=== PATIENT | male | born 1965 | race Caucasian/White ===

== ENCOUNTER 2016-07-05 18:11 | Emergency (ER) | payer SELFPAY ==
[~2016-07-05] VITALS: Ht 188 cm; Wt 90.0 kg
[~2016-07-05 18:11] MED LIST: DEPA250T2 PO
[2016-07-05 18:12] VITALS: BP 155/90; PULSE 92; RESP 20; TEMP 98.4; O2SAT 99
--- NOTE | 2016-07-05 18:50 | PD ---
HPI Chief Complaint: Cold / Flu Symptoms Time Seen by Provider: 18:50 Travel History International Travel<30 days: No Contact w/Intl Traveler<30days: No Traveled to known affect area: No History of Present Illness HPI 51-year-old male presents to the emergency department complaint of cough, nasal congestion, body aches, headache 9 days. Reports subjective fever since last Sunday but cannot report MAXIMUM TEMPERATURE secondary to not taking his temperature. He reports feeling hot and body chills. Reports chest tightness and shortness of breath. Denies hemoptysis. Denies chest pain. Reports throat irritation mainly when coughing. Denies ear pain. Reports tobacco use daily. Denies history of COPD or asthma. Reports wheezing. Reports vomiting times one today secondary to cough exacerbation. Otherwise denies nausea, vomiting, abdominal pain. Has tried multiple ydpz-mbk-[id number] medications with minimal symptom relief. No known relieving or aggravating factors. No known allergies. History of hypertension and does not take medications. Does not have an established primary care provider. No other modifying factors or associated signs and symptoms. PFSH Past Medical History ADD: No ADHD: Yes Bipolar Disorder: Yes (MANIC DEPRESSIVE) Anxiety: Yes Diminished Hearing: Yes (LEFT EAR HEARING LOSS) Social History Alcohol Use: Yes Tobacco Use: Yes Substance Use: Yes (CRACK, WEED) Allergies-Medications (Allergen,Severity, Reaction): Coded Allergies: No Known Allergies (Unverified , 07/05/16) Reported Meds & Prescriptions Reported Meds & Active Scripts Active Ibuprofen 800 Mg Tab 800 Mg PO Q6HR PRN Nasonex Nasal [place] (Mometasone Furoate) 50 Mcg/Act Naspr 2 [place] EACH NARE DAILY PRN Tessalon Perles (Benzonatate) 100 Mg Cap 100 Mg PO TID PRN Deltasone (Prednisone) 20 Mg Tab 40 Mg PO DAILY 4 Days start 07/06/2016 Proair Hfa 8.5 GM Inh (Albuterol Sulfate) 90 Mcg/Act Aer 2 Puff INH Q4-6H PRN 108 mcg/actuation Azithromycin 500 Mg Tab 500 Mg PO DAILY Review of Systems Except as stated in HPI: all other systems reviewed are Neg Physical Exam Narrative GENERAL: Well-nourished, well-developed male patient, in no acute distress; afebrile, appears psychiatric doesn't feel well SKIN: Warm and moist. HEAD: Atraumatic. Normocephalic. EYES: Pupils equal and round at 3 mm with brisk reaction. No scleral icterus. No injection or drainage. PERRLA. EOMI. ENT: Mucosa pink and moist. No erythema or exudates. No uvular edema. No uvular , palatal, or tonsillar deviation. Airway patent. EARS: Bilateral pinnae and external canals appear within normal limits. Bilateral tympanic membranes without erythema, dullness or perforation. NECK: Trachea midline. No lymphadenopathy. CARDIOVASCULAR: Regular rate and rhythm. No murmur appreciated. RESPIRATORY: No accessory muscle use. Clear to auscultation and slightly decreased in bilateral bases. Breath sounds equal bilaterally. Continuous moist , nonproductive cough during physical exam. GASTROINTESTINAL: Abdomen soft, non-tender, nondistended. Hepatic and splenic margins not palpable. Bowel sounds are active 4 quadrants. MUSCULOSKELETAL: No obvious deformities. No clubbing. No cyanosis. No edema. NEUROLOGICAL: Awake and alert. Oriented 3. No obvious cranial nerve deficits. Motor grossly within normal limits. Normal speech. Moves all extremities. 5/5 strength to all extremities. PSYCHIATRIC: Appropriate mood and affect; insight and judgment normal. Data Data Last Documented VS Vital Signs Date Time Temp Pulse Resp B/P Pulse Ox O2 Delivery O2 Flow Rate FiO2 07/05/16 18:12 98.4 92 20 155/90 99 Room Air Orders Influenzae A/B Antigen (07/05/16 18:41) Ibuprofen (Motrin) (07/05/16 19:00) Chest, Single Ap (07/05/16 18:50) Prednisone (Deltasone) (07/05/16 19:00) Albuterol Neb (Albuterol Neb) (07/05/16 19:00) Azithromycin (Zithromax) (07/05/16 19:30) MDM Medical Decision Making Medical Screen Exam Complete: Yes Emergency Medical Condition: Yes Medical Record Reviewed: Yes Differential Diagnosis Influenza, bronchitis, pneumonia, upper respiratory infection Narrative Course 51-year-old male with cold/flu symptoms. Onset of subjective fever last Sunday. Afebrile nontoxic appearing in the ER. Persistent moist cough during physical exam. Lungs are clear with decreased lung sounds in bilateral bases. No wheezing. Oxygen saturation is 99% on room air. Influenza ordered. Chest x-ray, albuterol nebulizer, Deltasone ordered. Ibuprofen ordered. 1900: Eduardo Danielle, PAC assumed patient care at this time. Report given. See his note for final disposition. Referrals: Primary Care Physician Patient Instructions: Acute Bronchitis (ED), General Instructions Departure Forms: Tests/Procedures, Work Release Enter return to work date: Jul 07, 2016 Additional Instructions: Use Albuterol inhaler as prescribed Take oral steroids as prescribed and complete full course Use Tessalon Perles as prescribed to decrease coughing spasms Vlvl-noz-bcwawox decongestants or antihistamines as directed and as needed for symptom management Your cough can last 4-6 weeks Drink plenty of fluids to prevent dehydration Use hot air humidifier to decrease cough exacerbation Turn off ceiling fans and sleep with head of bed elevated Avoid triggers such as second hand smoke, dust, known allergens Follow-up with your primary care provider Return to the emergency department immediately with worsening of symptoms Med/Other Pt SpecificInfo: Prescription(s) given Scripts Ibuprofen 800 Mg Lib893 Mg PO Q6HR PRN (PAIN) #30 TAB Ref 0 Prov:Yessica Mera 07/05/16 Mometasone Nasal [place] (Nasonex Nasal [place])50 Mcg/Act Naspr2 [place] EACH NARE DAILY PRN (NASAL CONGESTION) #1 BOTTLE Ref 0 Prov:Yessica Mera 07/05/16 Benzonatate (Tessalon Perles)100 Mg [id number] Mg PO TID PRN (COUGH) #20 CAP Ref 0 Prov:Yessica MeraP 07/05/16 Prednisone (Deltasone)20 Mg Tab40 Mg PO DAILY 4 Days Ref 0 start 07/06/2016 Prov:Yessica Mera 07/05/16 Albuterol 8.5 GM Inh (Proair Hfa 8.5 GM Inh)90 Mcg/Act Aer2 Puff INH Q4-6H PRN ( SOB/WHEEZING) #1 INHALER Ref 0 108 mcg/actuation Prov:Yessica Mera 07/05/16 Azithromycin 500 Mg Pab136 Mg PO DAILY #5 TAB Ref 0 Prov:Yessica MeraP 07/05/16 Disposition: 01 DISCHARGE HOME Condition: Stable Yessica Mera Jul 05, 2016 18:50
[2016-07-05] MEDS ORDERED: MOME17I EACH NARE (18:59)
[2016-07-05] MEDS ORDERED: BENZ100 PO (18:59)
[2016-07-05] MEDS ORDERED: AZIT500T2 PO (18:59)
[2016-07-05] MEDS ORDERED: ALBUAER3 INH (18:59)
[2016-07-05] MEDS ORDERED: PRED-503 PO (18:59)
[2016-07-05] MEDS ORDERED: IBUP800T23 PO (18:59)
[2016-07-05] MEDS ORDERED: IBUPROFEN 800 MG TAB PO ONE (19:00)
[2016-07-05] MEDS ORDERED: predniSONE 20 MG TAB PO ONE (19:00)
[2016-07-05] MEDS ORDERED: RESP: ALBUTEROL 2.5 MG/3 ML NEB (SCH) INH ONE (19:00)
[2016-07-05] MEDS ORDERED: AZITHROMYCIN 250 MG TAB PO ONE (19:30)
--- NOTE | 2016-07-05 19:30 | PD ---
Physical Exam Date Seen by Provider: Jul 05, 2016 Time Seen by Provider: 19:27 Data Data Last Documented VS Vital Signs Date Time Temp Pulse Resp B/P Pulse Ox O2 Delivery O2 Flow Rate FiO2 07/05/16 18:12 98.4 92 20 155/90 99 Room Air Orders Influenzae A/B Antigen (07/05/16 18:41) Ibuprofen (Motrin) (07/05/16 19:00) Chest, Single Ap (07/05/16 18:50) Prednisone (Deltasone) (07/05/16 19:00) Albuterol Neb (Albuterol Neb) (07/05/16 19:00) Azithromycin (Zithromax) (07/05/16 19:30) MDM Medical Record Reviewed: Yes Supervised Visit with WALLY: No Interpretation(s) Influenza: Negative Chest x-ray: Patient has some streaky congestion in the left lower lobe which may be consistent with an early developing pneumonia Differential Diagnosis MDM: High Differential diagnoses: Pneumonia, bronchitis, URI, asthma, RAD, legionnaire's disease, SARS, ARDS, influenza, bronchiolitis, RSV,PE,CHF Narrative Course The patient is given Zithromax 500 mg by mouth. Patient be treated for early pneumonia, reactive airway disease Diagnosis Primary Impression: Pneumonia Qualified Code: J18.1 - Pneumonia of left lower lobe due to infectious organism Additional Impression: Reactive airway disease Qualified Code: J45.20 - Reactive airway disease, mild intermittent, uncomplicated Referrals: Primary Care Physician Patient Instructions: General Instructions, Acute Bronchitis (ED) Departure Forms: Work Release, Enter return to work date: Tests/Procedures Additional Instruction: Use Albuterol inhaler as prescribed Take oral steroids as prescribed and complete full course Use Tessalon Perles as prescribed to decrease coughing spasms Tzvr-pwm-ythpvve decongestants or antihistamines as directed and as needed for symptom management Your cough can last 4-6 weeks Drink plenty of fluids to prevent dehydration Use hot air humidifier to decrease cough exacerbation Turn off ceiling fans and sleep with head of bed elevated Avoid triggers such as second hand smoke, dust, known allergens Follow-up with your primary care provider Return to the emergency department immediately with worsening of symptoms Med/Other Pt SpecificInfo: Prescription(s) given Scripts Ibuprofen 800 Mg [id number] Mg PO Q6HR PRN (PAIN) #30 TAB Ref 0 Prov:Yessica Mera [employer]PERVISOR [employer]INTENA[employer]CE 07/05/16 Mometasone Nasal [place] (Nasonex Nasal [place])50 Mcg/Act Naspr2 [place] EACH NARE DAILY PRN (NASAL CONGESTION) #1 BOTTLE Ref 0 Prov:Yessica Mera SUPERVIS[employer] MAINTENANCE 07/05/16 Benzonatate (Tessalon Perles)100 Mg Hot049 Mg PO TID PRN (COUGH) #20 CAP Ref 0 Prov:Yesscia Mera Chelita SUPERVISOR [employer] MAINTENANCE 07/05/16 Prednisone (Deltasone)20 Mg Tab40 Mg PO DAILY 4 Days Ref 0 start 07/06/2016 Prov:Yessica Mera SUPERVIS[employer] MAINTENANCE 07/05/16 Albuterol 8.5 GM Inh (Proair Hfa 8.5 GM Inh)90 Mcg/Act Aer2 Puff INH Q4-6H PRN ( SOB/WHEEZING) #1 INHALER Ref 0 108 mcg/actuation Prov:Yessica Mera Chelita SUPERVISOR [employer]LL MAINTENANCE 07/05/16 Azithromycin 500 Mg Qiy210 Mg PO DAILY #5 TAB Ref 0 Prov:Yessica Mera Chelita WADEP 07/05/16 Disposition: 01 DISCHARGE HOME Condition: Stable Eduardo Danielle Jul 05, 2016 19:30
--- NOTE | 2016-07-05 19:42 | RADRPT ---
EXAM DATE/TIME: 07/05/2016 19:01 [facility] COMPARISON: No previous studies available for comparison. INDICATIONS : Cough and cold symptoms for 1 week. MEDICAL HISTORY : Hypertension. SURGICAL HISTORY : None. ENCOUNTER: Subsequent ACUITY: 1 day PAIN SCORE: 3/10 LOCATION: Bilateral chest FINDINGS: The heart and mediastinal structures are normal. The pulmonary vascular pattern is normal. The lung s are clear. CONCLUSION: 1. No acute cardiopulmonary disease. Shamar Fink MD on July 05, 2016 at 19:38 Board Certified Radiologist. This report was verified electronically.
== END 2016-07-05 19:41 | disposition home or self-care (01) ==
LOC: NEPB 18:11
DX: J18.1 Lobar pneumonia, unspecified organism (principal); J45.20 Mild intermittent asthma, uncomplicated; M79.1 Myalgia; R51 Headache; I10 Essential (primary) hypertension; H91.92 Unspecified hearing loss, left ear; Z72.0 Tobacco use; Z86.59 Personal history of other mental and behavioral disorders
CPT/HCPCS: 71010; 87804; 94664; 99284; J7512; J7613

== ENCOUNTER 2016-07-12 00:43 | Emergency (ER) | payer SELFPAY ==
[~2016-07-12] VITALS: Ht 188 cm; Wt 93.1 kg
[~2016-07-12 00:43] MED LIST changes: +ALBUAER3 INH; +AZIT500T2 PO; +BENZ100 PO; -DEPA250T2 PO; +IBUP800T23 PO; +MOME17I EACH NARE; +PRED-503 PO
[2016-07-12 00:45] VITALS: BP 136/92; PULSE 72; RESP 16; TEMP 98; O2SAT 98
[2016-07-12 01:07] VITALS: BP 153/84; PULSE 75; RESP 16; O2SAT 97
[2016-07-12 01:14] VITALS: RESP 16
[2016-07-12 01:27] LABS: AUTOMATED NEUTROPHIL # 4.9 TH/MM3 (1.8-7.7); BASOPHIL # 0.1 TH/MM3 (0-0.2); BASOPHIL % 0.7 % (0.0-2.0); EOSINOPHIL # 0.3 TH/MM3 (0-0.4); EOSINOPHIL % 2.6 % (0.0-4.0); HEMATOCRIT 43.6 % (39.0-51.0); LYMPH % 48.6 % (9.0-44.0); LYMPHOCYTE # 5.3 TH/MM3 (1.0-4.8); MEAN CORPUSCULAR HEMOGLOBIN 33.1 PG (27.0-34.0); MEAN CORPUSCULAR HGB CONC 35.2 % (32.0-36.0); NEUT % 45.1 % (16.0-70.0); PLATELET COUNT 159 TH/MM3 (150-450); RED BLOOD COUNT 4.64 MIL/MM3 (4.50-5.90); RED CELL DISTRIBUTION WIDTH 12.7 % (11.6-17.2); WHITE BLOOD COUNT 10.9 TH/MM3 (4.0-11.0)
[2016-07-12 01:31] LABS: HEMO FLAGS AUTO DIFF
[2016-07-12 01:33] LABS: BLOOD, URINE MOD (NEG); GLUCOSE,URINE NEG (NEG); KETONE, URINE NEG (NEG); MUCUS URINE FEW /lpf (OCC); NITRITE,URINE NEG (NEG); RENAL EPITHELIAL CELLS <1 /hpf; URINE COLOR YELLOW (YELLW/STRAW)
[2016-07-12 01:38] LABS: COMMENT (UR) CULT NOT INDICATED; CULTURE IF INDICATED CULT NOT INDICATED
[2016-07-12 01:55] LABS: ALT (GPT) 27 U/L (12-78); ANION GAP 5 MEQ/L (5-15); AST (GOT) 15 U/L (15-37); BICARBONATE 26.7 MEQ/L (21.0-32.0); BLOOD UREA NITROGEN 14 MG/DL (7-18); CHLORIDE 110 MEQ/L (98-107); GLOMERULAR FILTRATION RATE 62 ML/MIN (>89); POTASSIUM 4.7 MEQ/L (3.5-5.1); SODIUM (NA) 142 MEQ/L (136-145)
[2016-07-12 01:57] LABS: ALKALINE PHOSPHATASE 73 U/L (45-117); TOTAL BILIRUBIN ADULT 0.5 MG/DL (0.2-1.0)
[2016-07-12] MEDS ORDERED: SODIUM CHLOR 0.9% 1000 ML INJ 1,000 ML IV ONE (02:00)
[2016-07-12] MEDS ORDERED: ONDANSETRON HCL 4 MG/2 ML VIAL IV ONE (02:00)
[2016-07-12] MEDS ORDERED: KETOROLAC TROMETHAMINE 30 MG/ML (IVP) VIAL IV PUSH ONE (02:00)
[2016-07-12 02:11] LABS: BANDS 3 % (0-6); EOSINOPHILS 1 % (0-4); NEUTROPHIL # MANUAL DIFF 5.8 TH/MM3 (1.8-7.7); POLYS (SEG NEUTROPHILS) 50 % (16-70); WBC DIFF SAMPLE 100
[2016-07-12 02:12] LABS: PLATELET ESTIMATE SMEAR NORMAL (NORMAL); PLATELET MORPHOLOGY NORMAL (NORMAL); SCAN/DIFF FINAL DIFF MANUAL
[2016-07-12] MEDS ORDERED: AZITHROMYCIN PWD FOR SUSP 1 GM PACKET PO ONE (02:30)
[2016-07-12] MEDS ORDERED: cefTRIAXone INJ 1,000 MG in SODIUM CHLORIDE 0.9% INJ 100 ML IV ONE (02:30)
--- NOTE | 2016-07-12 04:17 | PD ---
HPI Chief Complaint: Flank/Kidney Pain Time Seen by Provider: 01:47 Travel History International Travel<30 days: No Contact w/Intl Traveler<30days: No Traveled to known affect area: No History of Present Illness HPI The patient is a 51 year old male who presents to the [facility] emergency department with a history of sudden onset of right flank pain that began at approximately 11 PM this evening. The patient reports that the pain has been coming and going and feels like someone is touching his back. He denies any injury associated with this. He denies having any urinary symptoms such as dysuria, hematuria, urinary urgency or frequency. He does however report that he did have unprotected intercourse recently and was told that the female that he had sex with has a sexually transmitted disease. He is unsure of the name of the disease. He denies having any penile discharge. He denies having any prior history of kidney stone. The patient denies any recent fevers, worsening cough or congestion (the patient was recently treated for a chest cold with antibiotic that he completed last week), neck pain, chest pain, shortness of breath, abdominal pain, vomiting, diarrhea, urinary symptoms, or neurologic symptoms. [facility] Past Medical History Narrative Medical The patient's past medical history is significant for bipolar disorder, tension deficit hyperactivity disorder, ADD: No ADHD: Yes Bipolar Disorder: Yes (MANIC DEPRESSIVE) Anxiety: Yes Diminished Hearing: Yes (LEFT EAR HEARING LOSS) Immunizations Current: Yes Tetanus Vaccination: > 5 Years Influenza Vaccination: Yes Past Surgical History Narrative Surgical The patient's past surgical history is significant for left ankle ORIF. Social History Alcohol Use: Yes (socially) Tobacco Use: Yes Substance Use: Yes (CRACK, WEED) Allergies-Medications (Allergen,Severity, Reaction): Coded Allergies: No Known Allergies (Unverified , 07/12/16) Reported Meds & Prescriptions Reported Meds & Active Scripts Active Review of Systems Except as stated in HPI: all other systems reviewed are Neg General / Constitutional: No: Fever Eyes: No: Visual changes HENT: No: Headaches Cardiovascular: No: Chest Pain or Discomfort Respiratory: No: Shortness of Breath Gastrointestinal: No: Nausea, Vomiting, Diarrhea, Abdominal Pain, Changes in Bowel Habits, Indigestion Genitourinary: Positive: Flank Pain (right flank pain), No: Dysuria Musculoskeletal: No: Pain Skin: No Rash Neurologic: No: Weakness Psychiatric: No: Depression Endocrine: No: Polydipsia Hematologic/Lymphatic: No: Easy Bruising Physical Exam Narrative General: The patient is a well-developed well-nourished male in no acute distress. Head and Neck exam: Head is normocephalic atraumatic. Eyes: EOMI, pupils are equal round and reactive to light. Nose: Midline septum with pink mucous membranes Mouth: Dentition unremarkable. Moist mucus membranes. Posterior oropharynx is not erythematous. No tonsillar hypertrophy. Uvula midline. Airway patent. Neck: No palpable lymphadenopathy. No nuchal rigidity. No thyromegaly. Cardiovascular: Regular rate and rhythm without murmurs, gallops, or rubs. Lungs: Clear to auscultation bilaterally. No wheezes, rhonchi, or rales. Abdomen: Soft, without tenderness to palpation in all 4 quadrants of the abdomen. No guarding, rebound, or rigidity. Normal bowel sounds are audible. No tenderness on palpation of McBurney's point. Negative Ceballos's sign. Extremities: No clubbing, cyanosis, or edema. 2+ pulses in all 4 extremities. Back: No spinous process tenderness to palpation. Right-sided CVA tenderness on palpation. Neurologic Exam: Grossly nonfocal. Skin Exam: No rash noted. Intact skin that is warm and dry. Data Data Last Documented VS Vital Signs Date Time Temp Pulse Resp B/P Pulse Ox O2 Delivery O2 Flow Rate FiO2 07/12/16 01:14 16 07/12/16 01:07 75 153/84 97 Room Air 07/12/16 00:45 98.0 Orders Complete Blood Count With Diff (07/12/16 01:11) Comprehensive Metabolic Panel (07/12/16 01:11) Lipase (07/12/16 01:11) Urinalysis - C+S If Indicated (07/12/16 01:11) Iv Access Insert/Monitor (07/12/16 01:11) Ecg Monitoring (07/12/16 01:11) Oximetry (07/12/16 01:11) NPO (07/12/16 01:11) Sodium Chlor 0.9% 1000 Ml Inj (Ns 1000 M (07/12/16 02:00) Ondansetron Inj (Zofran Inj) (07/12/16 02:00) Ketorolac Inj (Toradol Inj) (07/12/16 02:00) Ct Abd/Pel W/O Iv Contrast (07/12/16 01:47) Gc And Chlamydia Pcr (07/12/16 02:18) Ceftriaxone Inj (Rocephin Inj) (07/12/16 02:30) Azithromycin Powd Pack (Zithromax Powd P (07/12/16 02:30) Labs Laboratory Tests Test 07/12/16 01:15 White Blood Count 10.9 TH/MM3 Red Blood Count 4.64 MIL/MM3 Hemoglobin 15.4 GM/DL Hematocrit 43.6 % Mean Corpuscular Volume 94.0 FL Mean Corpuscular Hemoglobin 33.1 PG Mean Corpuscular Hemoglobin 35.2 % Concent Red Cell Distribution Width 12.7 % Platelet Count 159 TH/MM3 Mean Platelet Volume 7.9 FL Neutrophils (%) (Auto) 45.1 % Lymphocytes (%) (Auto) 48.6 % Monocytes (%) (Auto) 3.0 % Eosinophils (%) (Auto) 2.6 % Basophils (%) (Auto) 0.7 % Neutrophils # (Auto) 4.9 TH/MM3 Lymphocytes # (Auto) 5.3 TH/MM3 Monocytes # (Auto) 0.3 TH/MM3 Eosinophils # (Auto) 0.3 TH/MM3 Basophils # (Auto) 0.1 TH/MM3 CBC Comment AUTO DIFF Differential Total Cells 100 Counted Neutrophils % (Manual) 50 % Band Neutrophils % 3 % Lymphocytes % 42 % Monocytes % 4 % Eosinophils % 1 % Neutrophils # (Manual) 5.8 TH/MM3 Differential Comment FINAL DIFF MANUAL Atypical Lymphocytes % Platelet Estimate NORMAL Platelet Morphology Comment NORMAL Red Cell Morphology Comment NORMAL Urine Color YELLOW Urine Turbidity CLEAR Urine pH 5.0 Urine Specific [place] 1.017 Urine Protein NEG mg/dL Urine Glucose (UA) NEG mg/dL Urine Ketones NEG mg/dL Urine Occult Blood MOD Urine Nitrite NEG Urine Bilirubin NEG Urine Urobilinogen LESS THAN 2.0 MG/DL Urine Leukocyte Esterase NEG Urine RBC 28 /hpf Urine WBC 3 /hpf Urine Renal Epithelial Cells <1 /hpf Urine Mucus FEW /lpf Microscopic Urinalysis Comment CULT NOT INDICATED Sodium Level 142 MEQ/L Potassium Level 4.7 MEQ/L Chloride Level 110 MEQ/L Carbon Dioxide Level 26.7 MEQ/L Anion Gap 5 MEQ/L Blood Urea Nitrogen 14 MG/DL Creatinine 1.23 MG/DL Estimat Glomerular Filtration 62 ML/MIN Rate Random Glucose 124 MG/DL Calcium Level 8.3 MG/DL Total Bilirubin 0.5 MG/DL Aspartate Amino Transf 15 U/L (AST/SGOT) Alanine Aminotransferase 27 U/L (ALT/SGPT) Alkaline Phosphatase 73 U/L Total Protein 6.5 GM/DL Albumin 3.2 GM/DL Lipase 208 U/L Chlamydia trachomatis DNA NOT DETECTED (PCR) Neisseria gonorrhoeae DNA NOT DETECTED (PCR) [facility] Medical Decision Making Medical Screen Exam Complete: Yes Emergency Medical Condition: Yes Medical Record Reviewed: Yes Differential Diagnosis Kidney stone, versus pyelonephritis, versus musculoskeletal strain, versus urethritis Narrative Course During the course of the patients emergency department visit, the patients history, examination, and differential diagnosis were reviewed with the patient. The patient had IV access obtained and blood work sent for analysis. The patient was placed on a net application support specialist with oximetry and blood pressure monitoring. The patient was provided normal saline 1 L IV fluid bolus, Zofran 4 mg IV, Toradol 15 mg IV. The patient reports that his pain was controlled. Given his possible exposure to sexually transmitted infection, the patient was given Rocephin 1 g IV, azithromycin 1 g IV. The patients laboratory studies were reviewed and remarkable for a CBC that shows a white count of 10.9, hemoglobin 15.4, platelets 159 with 48.6 lymphocytes, CMP is remarkable for chloride of 110, glucose 124, albumin 3.2, lipase 208, urinalysis shows moderate occult blood 28 rbc's otherwise unremarkable. GC and chlamydia are pending. Radiology studies were reviewed and remarkable for a 5 mm right UPJ stone with mild distention of the renal pelvis, to low density lesions involving the right lobe of the liver poorly characterized on CT given her small size as well as lack of IV contrast. If follow-up outpatient hepatic ultrasound is suggested to further evaluate. Right renal cyst. Splenomegaly noted. The patient was given a copy of his CT scan findings for follow-up with his primary care physician. The patient was given the name of the urologist on-call for follow- up regarding his UPJ stone. The patient is resting comfortably and feels better, is alert and in no distress. The patients results and examination findings were discussed with the patient. The repeat examination is unremarkable and benign. The history, exam, diagnostic testing, and current condition do not suggest any significant pathology to warrant further testing, continued ED treatment, admission, or surgical evaluation at this point. The vital signs have been stable. The patient does not have uncontrollable pain, intractable vomiting, or other significant symptoms. The patient's condition is stable and appropriate for discharge. The patient will pursue further outpatient evaluation with a primary care physician or other designated or consulting physician as indicated in the discharge instructions. The patient expressed understanding and was agreeable with this plan. Diagnosis Primary Impression: Hematuria Additional Impressions: Right flank pain Exposure to STD Right ureteral calculus Referrals: Darwin Hull MD 2 days Primary Care Physician 3 days Patient Instructions: General Instructions, Kidney Stones (ED) Additional Instructions: Follow-up with her primary care physician regarding to low density lesions in the liver. The radiologist recommended an outpatient ultrasound follow-up. Med/Other Pt SpecificInfo: Prescription(s) given Scripts Hydrocodone-Acetaminophen (Lortab)7.5-325 Mg Tab1 Tab PO Q6H PRN (PAIN GREATER THAN/EQUAL TO 5) #12 TAB Ref 0 Prov:July Ulloa MD 07/12/16 Ibuprofen 600 Mg Hua917 Mg PO TID PRN (PAIN SCALE 1 TO 4) #12 TAB Ref 0 Prov:July Ulloa MD 07/12/16 Disposition: 01 DISCHARGE HOME Condition: Stable July Ulloa MD Jul 12, 2016 04:16
[2016-07-12 04:20] LABS: CHLAMYDIA PCR NOT DETECTED (NOT DETECT); NEISSERIA PCR NOT DETECTED (NOT DETECT)
--- NOTE | 2016-07-12 04:24 | RADRPT ---
EXAM DATE/TIME: 07/12/2016 03:04 [facility] COMPARISON: No previous studies available for comparison. INDICATIONS : Right side flank pain ORAL CONTRAST: No oral contrast ingested. RADIATION DOSE: 14.38 CTDIvol (mGy) MEDICAL HISTORY : None SURGICAL HISTORY : None. ENCOUNTER: Initial ACUITY: 1 day PAIN SCALE: 7/10 LOCATION: Right flank TECHNIQUE: Volumetric scanning of the abdomen and pelvis was performed. Using automated exposure control and ad justment of the mA and/or kV according to patient size, radiation dose was kept as low as reasonably achievable to obtain optimal diagnostic quality images. FINDINGS: LOWER LUNGS: The visualized lower lungs are clear. LIVER: 2 low-density lesions are observed. Within segment 8 this measures 7 mm and within segment 6 this atif sures 1.5 cm. There are poorly characterize without IV contrast. The remaining liver is unremarkable. The gallbladder is decompressed the otherwise unremarkable. SPLEEN: Mild splenomegaly. No lesion observed. PANCREAS: Within normal limits. KIDNEYS: Normal in size and shape. A 5 mm stone is seen at the right ureteropelvic junction. Mild prominence o f the renal pelvis without amanda hydronephrosis. A 1.5 cm low-density lesion is seen anteriorly withi n the midpole of the right kidney. ADRENAL GLANDS: Within normal limits. VASCULAR: There is no aortic aneurysm. BOWEL/MESENTERY: The stomach, small bowel, and colon demonstrate no acute abnormality. There is no free intraperitone al air or fluid. Scattered colonic diverticuli without acute inflammation. ABDOMINAL WALL: Within normal limits. RETROPERITONEUM: There is no lymphadenopathy. BLADDER: No wall thickening or mass. REPRODUCTIVE: Within normal limits. INGUINAL: There is no lymphadenopathy or hernia. MUSCULOSKELETAL: Within normal limits for patient age. CONCLUSION: 1. 5 mm right UPJ stone with mild distention of the renal pelvis. 2. 2 low-density lesions involving the right lobe of the liver as detailed above. These are poorly ch aracterized with CT given their small size as well as the lack of IV contrast. A followup outpatient hepatic ultrasound is suggested to further evaluate. 3. Right renal cyst. 4. Splenomegaly. Fco Urrutia Jr., MD on July 12, 2016 at 4:17 Board Certified Radiologist. This report was verified electronically.
[2016-07-12] MEDS ORDERED: IBUP-232 PO (04:33)
[2016-07-12] MEDS ORDERED: HYDR-3534 PO (04:33)
== END 2016-07-12 04:39 | disposition home or self-care (01) ==
LOC: NEPE 00:43
DX: N20.1 Calculus of ureter (principal); N28.1 Cyst of kidney, acquired; Z20.2 Contact with and (suspected) exposure to infections with a predominantly sexual mode of transmission
CPT/HCPCS: 74176; 80053; 81001; 83690; 85007; 85027; 87491; 87591; 96361; 96365; 96375; 99284; J0696; J1885; J2405; J7030

== ENCOUNTER 2016-07-16 03:05 | Emergency (ER) | payer SELFPAY ==
[~2016-07-16] VITALS: Ht 188 cm; Wt 95.0 kg
[~2016-07-16 03:05] MED LIST changes: -ALBUAER3 INH; -AZIT500T2 PO; -BENZ100 PO; +HYDR-3534 PO; +IBUP-232 PO; -IBUP800T23 PO; -MOME17I EACH NARE; -PRED-503 PO
[2016-07-16 03:08] VITALS: PULSE 83; RESP 22; TEMP 98.6; O2SAT 99
[2016-07-16] MEDS: SODIUM CHLOR 0.9% 1000 ML INJ 1,000 ML IV ONE (03:15)
[2016-07-16] MEDS: KETOROLAC TROMETHAMINE 30 MG/ML (IVP) VIAL IVP ONE (03:16)
[2016-07-16] MEDS: HYDROmorphone HCL PF 1 MG/ML VIAL IVS ONE ×2 (03:16→05:04)
[2016-07-16] MEDS: ONDANSETRON HCL 4 MG/2 ML VIAL IV ONE (03:16)
--- NOTE | 2016-07-16 03:20 | PD ---
HPI Chief Complaint: Abdominal Pain Time Seen by Provider: 03:06 Travel History International Travel<30 days: No Contact w/Intl Traveler<30days: No Traveled to known affect area: No History of Present Illness HPI 51-year-old man who presents to the emergency department complaint abrupt onset of right flank pain. He has a known 5 mm right UPJ stone seen [address] scan. Done well initially and then woke up tonight with the abrupt onset of recurrent severe right flank pain. He's never had kidney stones before. He states he otherwise had been feeling generally well and healthy. History Past Medical History Medical History: Denies Significant Hx Social History Alcohol Use: Yes (socially) Tobacco Use: Yes Allergies-Medications (Allergen,Severity, Reaction): Coded Allergies: No Known Allergies (Unverified , 07/12/16) Reported Meds & Prescriptions Reported Meds & Active Scripts Active Lortab (Hydrocodone-Acetaminophen) 7.5-325 Mg Tab 1 Tab PO Q6H PRN Ibuprofen 600 Mg Tab 600 Mg PO TID PRN Review of Systems Except as stated in HPI: all other systems reviewed are Neg Physical Exam Narrative GENERAL: 51-year-old man, obviously uncomfortable. Nontoxic. SKIN: Focused skin assessment warm/dry. CARDIOVASCULAR: Regular rate and rhythm. No murmur appreciated. RESPIRATORY: No accessory muscle use. Clear to auscultation. Breath sounds equal bilaterally. GASTROINTESTINAL: Abdomen soft. Moderate right sided tenderness palpation. No rebound or guarding. MUSCULOSKELETAL: No obvious deformities. No clubbing. No cyanosis. No edema. NEUROLOGICAL: Awake and alert. No obvious cranial nerve deficits. Motor grossly within normal limits. Normal speech. PSYCHIATRIC: Appropriate mood and affect; insight and judgment normal. Data Data Last Documented VS Vital Signs Date Time Temp Pulse Resp B/P Pulse Ox O2 Delivery O2 Flow Rate FiO2 07/16/16 05:03 73 18 136/78 100 Room Air 07/16/16 03:08 98.6 Orders Complete Blood Count With Diff (07/16/16 03:07) Basic Metabolic Panel (Bmp) (07/16/16 03:07) Sodium Chlor 0.9% 1000 Ml Inj (Ns 1000 M (07/16/16 03:15) Hydromorphone Pf Inj (Dilaudid Pf Inj) (07/16/16 03:15) Ketorolac Inj (Toradol Inj) (4/9/17 03:15) Ondansetron Inj (Zofran Inj) (07/16/16 03:15) Hydromorphone Pf Inj (Dilaudid Pf Inj) (07/16/16 05:00) Labs Laboratory Tests Test 07/16/16 03:17 White Blood Count 15.2 TH/MM3 Red Blood Count 4.82 MIL/MM3 Hemoglobin 15.5 GM/DL Hematocrit 44.9 % Mean Corpuscular Volume 93.2 FL Mean Corpuscular Hemoglobin 32.1 PG Mean Corpuscular Hemoglobin 34.4 % Concent Red Cell Distribution Width 12.6 % Platelet Count 156 TH/MM3 Mean Platelet Volume 7.4 FL Neutrophils (%) (Auto) 30.8 % Lymphocytes (%) (Auto) 66.5 % Monocytes (%) (Auto) 1.7 % Eosinophils (%) (Auto) 0.7 % Basophils (%) (Auto) 0.3 % Neutrophils # (Auto) 4.7 TH/MM3 Lymphocytes # (Auto) 10.1 TH/MM3 Monocytes # (Auto) 0.3 TH/MM3 Eosinophils # (Auto) 0.1 TH/MM3 Basophils # (Auto) 0.0 TH/MM3 CBC Comment AUTO DIFF Differential Total Cells 100 Counted Neutrophils % (Manual) 33 % Band Neutrophils % 5 % Lymphocytes % 60 % Eosinophils % 2 % Neutrophils # (Manual) 5.8 TH/MM3 Differential Comment FINAL DIFF MANUAL Platelet Estimate NORMAL Platelet Morphology Comment NORMAL Ovalocytes 1+ Sodium Level 144 MEQ/L Potassium Level 4.2 MEQ/L Chloride Level 107 MEQ/L Carbon Dioxide Level 28.3 MEQ/L Anion Gap 9 MEQ/L Blood Urea Nitrogen 12 MG/DL Creatinine 1.45 MG/DL Estimat Glomerular Filtration 52 ML/MIN Rate Random Glucose 88 MG/DL Calcium Level 9.0 MG/DL [facility] Medical Decision Making Medical Screen Exam Complete: Yes Emergency Medical Condition: Yes Interpretation(s) LABS: CBC remarkable for mild leukocytosis. BMP unremarkable Differential Diagnosis Renal stone, ureteral obstruction, instructed uropathy, other Narrative Course Medical decision making INITIAL: 51-year-old man, known 5 mm right ureteral stone. There is recurrent symptoms. We'll give him fluids, pain meds, antiemetics, reassess. Diagnosis Primary Impression: Right ureteral calculus Referrals: Darwin Hull MD 1 week Additional Instructions: Take Naprosyn and Lortab as needed for pain. Zofran as needed for nausea or vomiting. Return to the emergency department for any new or worsening symptoms. If you're not feeling completely well in the next one to 2 days follow-up with Dr. Hull with urology. Med/Other Pt SpecificInfo: Prescription(s) given Scripts Ondansetron Odt (Zofran Odt)4 Mg Tab4 Mg SL Q8HR PRN (Nausea/Vomiting) #15 TAB May substitute non-ODT form. Prov:Jose Wolfe MD 07/16/16 Hydrocodone-Acetaminophen (Lortab)5-325 Mg Tab1-2 Tab PO Q6H PRN (PAIN) #12 TAB Prov:Jose Wolfe MD 07/16/16 Naproxen (Naprosyn)500 Mg [id number] Mg PO BID PRN (PAIN SCALE 1 TO 10) #20 TAB Prov:Jose Wolfe MD 07/16/16 Disposition: 01 DISCHARGE HOME Condition: Stable Jose Wolfe MD Jul 16, 2016 03:20
[2016-07-16 03:23] VITALS: BP 138/83
[2016-07-16 03:51] LABS: AUTOMATED NEUTROPHIL # 4.7 TH/MM3 (1.8-7.7); BASOPHIL % 0.3 % (0.0-2.0); BICARBONATE 28.3 MEQ/L (21.0-32.0); EOSINOPHIL # 0.1 TH/MM3 (0-0.4); EOSINOPHIL % 0.7 % (0.0-4.0); HEMATOCRIT 44.9 % (39.0-51.0); LYMPH % 66.5 % (9.0-44.0); LYMPHOCYTE # 10.1 TH/MM3 (1.0-4.8); MEAN CELL VOLUME 93.2 FL (80.0-100.0); MEAN CORPUSCULAR HEMOGLOBIN 32.1 PG (27.0-34.0); MEAN CORPUSCULAR HGB CONC 34.4 % (32.0-36.0); MONO % 1.7 % (0.0-8.0); NEUT % 30.8 % (16.0-70.0); PLATELET COUNT 156 TH/MM3 (150-450); POTASSIUM 4.2 MEQ/L (3.5-5.1); RED BLOOD COUNT 4.82 MIL/MM3 (4.50-5.90); RED CELL DISTRIBUTION WIDTH 12.6 % (11.6-17.2); WHITE BLOOD COUNT 15.2 TH/MM3 (4.0-11.0)
[2016-07-16 03:53] LABS: HEMO FLAGS AUTO DIFF
[2016-07-16 04:43] LABS: BANDS 5 % (0-6); EOSINOPHILS 2 % (0-4); NEUTROPHIL # MANUAL DIFF 5.8 TH/MM3 (1.8-7.7); POLYS (SEG NEUTROPHILS) 33 % (16-70); WBC DIFF SAMPLE 100
[2016-07-16 04:44] LABS: PLATELET ESTIMATE SMEAR NORMAL (NORMAL); PLATELET MORPHOLOGY NORMAL (NORMAL)
[2016-07-16 04:45] LABS: OVALOCYTES 1+ (NORMAL); SCAN/DIFF FINAL DIFF MANUAL
[2016-07-16 05:03] VITALS: BP 136/78; PULSE 73; RESP 18; O2SAT 100
[2016-07-16] MEDS ORDERED: ZOFR4TAB3 SL (06:42)
[2016-07-16] MEDS ORDERED: NAPR500 PO (06:42)
[2016-07-16] MEDS ORDERED: HYDR-3533 PO (06:42)
== END 2016-07-16 07:48 | disposition home or self-care (01) ==
LOC: NEPC 03:05
DX: N20.1 Calculus of ureter (principal); D72.829 Elevated white blood cell count, unspecified; Z72.0 Tobacco use
CPT/HCPCS: 80048; 85007; 85027; 96374; 96375; 96376; 99284; J1170; J1885; J2405; J7030

== ENCOUNTER 2017-02-24 02:57 | Emergency (ER) | payer SELFPAY ==
[~2017-02-24] VITALS: Ht 182.9 cm; Wt 109.0 kg
[~2017-02-24 02:57] MED LIST changes: +HYDR-3533 PO; +NAPR500 PO; +ZOFR4TAB3 SL
[2017-02-24 03:10] VITALS: BP 113/59; PULSE 76; RESP 16; TEMP 98.7; O2SAT 94
--- NOTE | 2017-02-24 03:38 | PD ---
HPI Chief Complaint: Alcohol/Drug Intoxication Time Seen by Provider: 03:06 Travel History International Travel<30 days: No Contact w/Intl Traveler<30days: No Traveled to known affect area: No History of Present Illness HPI 51-year-old white male presents to emergency department by EMS for evaluation of intoxication. The patient was found heavily intoxicated on [address]. The patient was unable to render any meaningful history due to his high level of intoxication. He has vomited on himself en route as well as here in the ER. He is somnolent but arouses to noxious stimuli. His oxygen saturations are low but they do respond to nasal O2. On nasal O2 he is satting in the mid 90s. There is no evidence of trauma. PFSH Past Medical History Medical History: Unable to Obtain ADD: No ADHD: Yes Bipolar Disorder: Yes (MANIC DEPRESSIVE) Anxiety: Yes Diminished Hearing: Yes (LEFT EAR HEARING LOSS) Immunizations Current: Yes Past Surgical History Surgical History: Unable to Obtain Social History Alcohol Use: Yes (socially) Tobacco Use: Yes Substance Use: Yes (CRACK, WEED) Allergies-Medications (Allergen,Severity, Reaction): Coded Allergies: No Known Allergies (Unverified Adverse Reaction, Unknown, 02/24/17) Reported Meds & Prescriptions Reported Meds & Active Scripts Active Active Prescriptions or Reported Medications Unobtainable Review of Systems ROS Limitations: Intoxication Physical Exam Narrative GENERAL: This is a well-nourished, well-developed patient, in no apparent distress. He is very somnolent but arouses to noxious stimuli . He has a positive gag reflex. Patient has vomitus on his clothing. SKIN: No rashes, ecchymoses or lesions. Warm and dry. HEAD: Atraumatic. Normocephalic. EYES: PERRL, EOMI, no discharge or injection. No scleral icterus. EARS: Clear NOSE: Nasal turbinates appear normal. THROAT: Mucosa pink and moist. Airway patent. NECK: Trachea midline. supple, moves head freely. LUNGS: Clear to auscultation. CV: Regular in rhythm. ABDOMEN: Soft nontender. EXT: No clubbing cyanosis or edema. Data Data Last Documented VS Vital Signs Date Time Temp Pulse Resp B/P (MAP) Pulse Ox O2 Delivery O2 Flow Rate FiO2 11/18/17 03:10 98.7 76 16 113/59 (67) 94 [facility] Medical Decision Making Medical Screen Exam Complete: Yes Emergency Medical Condition: Yes Medical Record Reviewed: Yes Differential Diagnosis Differential diagnoses: Alcohol intoxication, substance abuse, electrolyte abnormality, malingering Narrative Course The patient is placed on monitor, O2 2 L by nasal cannula to maintain a sat in the mid 90s. Patient has a positive gag reflex. He is maintaining his airway. He'll be monitored closely. The patient has been reassessed multiple times and is still extremely intoxicated. At 0 640 he is snoring loudly and maintaining a saturation of 97% on 2 L. He still arouses to stimuli but falls asleep readily. The patient's care will be transferred to the daytime provider. This alcohol intoxication Diagnosis Primary Impression: Alcohol intoxication Qualified Codes: F10.920 - Alcohol use, unspecified with intoxication, uncomplicated Patient Instructions: General Instructions Additional Instructions: Rest. Increase fluids. Avoid alcohol. Avoid illegal substances. Follow-up with [facility] for detox. Do not operate a car or any heavy machinery under the influence of alcohol or drugs. Follow-up with a medical doctor this week. Return to the ER for emergencies Med/Other Pt SpecificInfo: No Meds Exist/No RX given Scripts Unable to Obtain Active Prescriptions or Reported Meds Disposition: 01 DISCHARGE HOME Condition: Stable Eduardo Danielle Feb 24, 2017 03:38
--- NOTE | 2017-02-24 08:33 | PD ---
Physical Exam Date Seen by Provider: Feb 24, 2017 Time Seen by Provider: 08:25 Narrative 51-year-old male patient presents emergency Department intoxicated. Patient was signed out to me by previous provider. Patient is awake, walking around in his room and alert at this time. Patient is demanding to leave and upset that he lost his wallet while he was intoxicated. Data Data Last Documented VS Vital Signs Date Time Temp Pulse Resp B/P (MAP) Pulse Ox O2 Delivery O2 Flow Rate FiO2 02/24/17 03:10 98.7 76 16 113/59 (77) 94 Orders Orders Ed Discharge Order (02/24/17 08:33) MDM Supervised Visit with [facility]ALLY: Yes Differential Diagnosis Differential diagnoses include but not limited to alcohol intoxication, alcohol abuse, dehydration Narrative Course 51-year-old male patient who is a sleep off after coming in intoxicated with alcohol and has subsequently woken up and is walking around his room awake and alert demanding to be discharged. Patient is denying any chest pain, shortness breath, fever, chills, malaise, abdominal pain. Although it is noted that the patient has been incontinent of urine stool multiple times. Patient states he feels fine and wants to go home. Patient discharged home with instructions to rest, drink enough water and follow up with [facility]. Diagnosis Primary Impression: Alcohol intoxication Qualified Codes: F10.920 - Alcohol use, unspecified with intoxication, uncomplicated Patient Instructions: Abuse of Alcohol (ED), General Instructions Additional Instruction: Rest. Increase fluids. Avoid alcohol. Avoid illegal substances. Follow-up with [facility] for detox. Do not operate a car or any heavy machinery under the influence of alcohol or drugs. Follow-up with a medical doctor this week. Return to the ER for emergencies Scripts Unable to Obtain Active Prescriptions or Reported Meds Disposition: DISCHARGE HOME Condition: Stable Alyce Mercado SHAHRIAR Feb 24, 2017 08:33
== END 2017-02-24 08:40 | disposition home or self-care (01) ==
LOC: NEPD 02:57
DX: F10.920 Alcohol use, unspecified with intoxication, uncomplicated (principal); H91.92 Unspecified hearing loss, left ear; Z72.0 Tobacco use; Z86.59 Personal history of other mental and behavioral disorders
CPT/HCPCS: 99283